=== PATIENT | female | born 2000 | race Two or more races ===

== ENCOUNTER 2023-05-30 18:02 | Emergency (ER) | payer OTHER ==
[~2023-05-30] VITALS: Ht 152.4 cm; Wt 45.0 kg
[2023-05-30 18:11] VITALS: BP 144/96; PULSE 88; RESP 20; O2SAT 97
[2023-05-30] MEDS ORDERED: IBUPROFEN 400 MG TAB PO ONE (20:15)
== END 2023-05-30 22:15 | disposition left against medical advice (07) ==
LOC: ER 18:02 → EDBD 18:02 → ER 22:15
DX: R07.89 Other chest pain (principal); V43.52XA Car driver injured in collision with other type car in traffic accident, initial encounter; Y93.89 Activity, other specified; Y92.410 Unspecified street and highway as the place of occurrence of the external cause; Y99.8 Other external cause status
CPT/HCPCS: 71045